=== PATIENT | male | born 1985 | race Caucasian/White ===

== ENCOUNTER 2019-10-28 10:42 | Emergency (ER) | payer SELFPAY ==
[2019-10-28] MEDS ORDERED: Morphine 10 MG/ML Syringe IM ONE (11:03)
[2019-10-28] MEDS ORDERED: Lidocaine 1% 10 ML MDV INJECT ONE (11:05)
--- NOTE | 2019-10-28 11:10 | EDM.PDOC ---
ED HPI GENERAL MEDICAL PROBLEM - General Chief Complaint: Skin Complaint Stated Complaint: ABCESS/CYST ON BUTTOCKS Time Seen by Provider: 10/28/19 10:47 Source of Information: Reports: Patient History Limitations: Reports: No Limitations - History of Present Illness INITIAL COMMENTS - FREE TEXT/NARRATIVE: Presents reporting an abscess on his left buttock. The patient states his lysed it yesterday and it has been draining but it is extremely painful. He is otherwise healthy without chronic medical problems. He is obese. He states that he got a little itching on his arms from taking Vicodin once but has since taken Tylenol 3 without reaction. No fever left buttock Pain Score (Numeric/FACES): 9 - Related Data Allergies Allergy/AdvReac Type Severity Reaction Status Date / Time acetaminophen [From Vicodin] Allergy Itching Verified 10/28/19 10:54 hydrocodone [From Vicodin] Allergy Itching Verified 10/28/19 10:54 Home Meds: Home Meds Acetaminophen with Codeine [Tylenol with Codeine #3 Tablet] 1 each PO Q6HR PRN # 20 tablet 10/28/19 [Rx] Clindamycin HCl 1 cap PO TID #30 capsule 10/28/19 [Rx] Past Medical History HEENT History: Reports: None Cardiovascular History: Reports: None Respiratory History: Reports: None Gastrointestinal History: Reports: None Genitourinary History: Reports: None Musculoskeletal History: Reports: None Neurological History: Reports: None Psychiatric History: Reports: None Endocrine/Metabolic History: Reports: None Hematologic History: Reports: None Immunologic History: Reports: None Oncologic (Cancer) History: Reports: None Dermatologic History: Reports: None - Infectious Disease History Infectious Disease History: Reports: Chicken Pox - Past Surgical History Head Surgeries/Procedures: Reports: None HEENT Surgical History: Reports: None Cardiovascular Surgical History: Reports: None Respiratory Surgical History: Reports: None GI Surgical History: Reports: None Male Surgical History: Reports: None Endocrine Surgical History: Reports: None Neurological Surgical History: Reports: None Musculoskeletal Surgical History: Reports: None Oncologic Surgical History: Reports: None Dermatological Surgical History: Reports: None Social & Family History - Family History Family Medical History: Noncontributory - Tobacco Use Smoking Status *Q: Former Smoker Used Tobacco, but Quit: Yes Month/Year Tobacco Last Used: 1 week - Caffeine Use Caffeine Use: Reports: None - Recreational Drug Use Recreational Drug Use: No ED ROS GENERAL - Review of Systems Review Of Systems: Comprehensive ROS is negative, except as noted in HPI. ED EXAM, SKIN/RASH Exam: See Below Exam Limited By: No Limitations General Appearance: Alert, Moderate Distress (Due to pain) Ears: Normal External Exam Nose: Normal Inspection Throat/Mouth: Normal Inspection Head: Atraumatic, Normocephalic Neck: Normal Inspection Respiratory/Chest: No Respiratory Distress Cardiovascular: Normal Peripheral Pulses Neurological: Alert, Oriented Psychiatric: Normal Affect, Normal Mood Skin: Warm, Dry, Other (Right buttock draining abscess with firm erythematous area 8 x 4 cm lateral) Course - Vital Signs Last Recorded V/S: Last Vital Signs Temp 36.8 C 10/28/19 10:54 Pulse 135 H 10/28/19 10:54 Resp 18 10/28/19 10:54 BP 152/95 H 10/28/19 10:54 Pulse Ox 96 10/28/19 10:54 - Orders/Labs/Meds Labs: Laboratory Tests 10/28/19 Range/Units 11:21 WBC 15.81 H (4.0-11.0) K/uL RBC 4.97 (4.50-5.90) M/uL Hgb 14.3 (13.0-17.0) g/dL Hct 43.4 (38.0-50.0) % MCV 87.3 (80.0-98.0) fL MCH 28.8 (27.0-32.0) pg MCHC 32.9 (31.0-37.0) g/dL RDW Std Deviation 40.6 (28.0-62.0) fl RDW Coeff of Reyes 13 (11.0-15.0) % Plt Count 221 (150-400) K/uL MPV 9.60 (7.40-12.00) fL Neut % (Auto) 76.7 (48.0-80.0) % Lymph % (Auto) 12.8 L (16.0-40.0) % Dixie % (Auto) 8.2 (0.0-15.0) % Eos % (Auto) 2.0 (0.0-7.0) % Baso % (Auto) 0.3 (0.0-1.5) % Neut # (Auto) 12.1 H (1.4-5.7) K/uL Lymph # (Auto) 2.0 (0.6-2.4) K/uL Dixie # (Auto) 1.3 H (0.0-0.8) K/uL Eos # (Auto) 0.3 (0.0-0.7) K/uL Baso # (Auto) 0.0 (0.0-0.1) K/uL Nucleated RBC % 0.0 /100WBC Nucleated RBCs # 0 K/uL Meds: Medications Discontinued Medications Generic Name Dose Route Start Last Admin Trade Name Darren PRN Reason Stop Dose Admin Lidocaine HCl 10 ml 10/28/19 11:05 Xylocaine 1% INJECT 10/28/19 11:06 ONETIME ONE Lidocaine HCl Confirm 10/28/19 12:06 Xylocaine-Mpf 1% Administered 10/28/19 12:07 Dose 10 ml .ROUTE .STK-MED ONE Morphine Sulfate 10 mg 10/28/19 11:03 10/28/19 11:58 Morphine IM 10/28/19 11:04 10 mg ONETIME ONE Administration Departure - Departure Time of Disposition: 12:30 Disposition: Home, Self-Care 01 Condition: Good Clinical Impression: Skin abscess - Discharge Information Instructions: Skin Abscess Referrals: PCP,None [Primary Care Provider] - Forms: ED Department Discharge Additional Instructions: 1. Take your antibiotic 3 times daily starting immediately when you pick it up today. 2. Pain medication (Tylenol #3) every 6 hours as needed for pain. No driving or operating machinery 3. Warm personal shower to area or warm moist packs packs 20 minutes 3 times daily. 4. [facility] for packing change and check up on 10/30/2019 at (will call) 5. Colace (Docusate) 100mg twice daily (stool softener) to avoid constipation. 6. If packing falls out, just leave it out and follow up at clinic apt. The abscess will drain which is expected. May change dressing. Sepsis Event Note - Evaluation Sepsis Screening Result: No Definite Risk - Focused Exam Vital Signs: Vital Signs Temp Pulse Resp BP Pulse Ox 10/28/19 10:54 36.8 C 135 H 18 152/95 H 96 Date Exam was Performed: 10/28/19 Time Exam was Performed: 12:29
== END 2019-10-28 13:15 | disposition home or self-care (01) ==
LOC: MW.ED 10:42
DX: L02.31 Cutaneous abscess of buttock (principal); Z88.5 Allergy status to narcotic agent; Z88.6 Allergy status to analgesic agent
CPT/HCPCS: 10060; 36415; 85025; 96372; 99283; J2001; J2270

== ENCOUNTER 2020-02-24 09:08 | Emergency (ER) | payer SELFPAY ==
--- NOTE | 2020-02-24 09:21 | EDM.PDOC ---
ED HPI GENERAL MEDICAL PROBLEM - General Chief Complaint: Skin Complaint Stated Complaint: RASH RIGHT SIDE OF BODY Time Seen by Provider: 02/24/20 09:09 Source of Information: Reports: Patient History Limitations: Reports: No Limitations - History of Present Illness INITIAL COMMENTS - FREE TEXT/NARRATIVE: 34-year-old male with no past medical history presenting for evaluation of a rash. Patient reports a 6-day history of an erythematous, mildly painful, mildly pruritic rash to the right side of his back and right chest. He is concerned that he has shingles. No known sick contacts. Denies fever, chills, nausea, vomiting. Denies any eye pain, visual disturbance, foreign body sensation, facial lesions, or hearing loss. No history of HIV, hepatitis, or immunosuppression. No other complaints. Past medical history: Reviewed, no additional pertinent history. Surgical history: Reviewed in system, no additional pertinent history. Social history: Reviewed in system, no additional pertinent history. Family history: Reviewed in system, no additional pertinent history. PHYSICAL EXAM Vital signs reviewed. Nursing notes reviewed. Constitutional: Awake, alert, non-distressed. Head: Normocephalic, atraumatic. Eyes: EOMI, conjunctiva normal, no discharge, no scleral icterus. No conjunct ival discharge. Ears, Nose, Throat: External ears and nose normal, moist oral mucosa. Right EAC and TM clear bilaterally, no lesions noted to TM or ear canal. Cardiovascular: 2+ radial pulse, capillary refill less than 2 seconds. Pulmonary: normal work of breathing, no accessory muscle use. Abdomen/GI: Soft, nontender, nondistended, no guarding or rigidity, no masses. Musculoskeletal: No deformities. Integumentary: Appropriate color for ethnicity, warm, dry, no pallor or jaundice. The right side of the thoracic back and the right lateral and right anterior chest feature a vesicular rash on an erythematous base with lesions in various stages of healing, consistent with shingles. Neurologic: Alert, answering questions appropriately, normal speech, no facial droop, moving all extremities well. Psychiatric: Appropriate mood and affect, normal thought process. right upper abd/back Pain Score (Numeric/FACES): 0 - Related Data Allergies Allergy/AdvReac Type Severity Reaction Status Date / Time acetaminophen [From Vicodin] Allergy Itching Verified 02/24/20 09:14 hydrocodone [From Vicodin] Allergy Itching Verified 02/24/20 09:14 Home Meds: Home Meds Acyclovir 800 mg PO 5XDAY 7 Days #35 tablet 02/24/20 [Rx] Past Medical History HEENT History: Reports: None Cardiovascular History: Reports: None Respiratory History: Reports: None Gastrointestinal History: Reports: None Genitourinary History: Reports: None Musculoskeletal History: Reports: None Neurological History: Reports: None Psychiatric History: Reports: None Endocrine/Metabolic History: Reports: None Hematologic History: Reports: None Immunologic History: Reports: None Oncologic (Cancer) History: Reports: None Dermatologic History: Reports: None - Infectious Disease History Infectious Disease History: Reports: Chicken Pox - Past Surgical History Head Surgeries/Procedures: Reports: None HEENT Surgical History: Reports: None Cardiovascular Surgical History: Reports: None Respiratory Surgical History: Reports: None GI Surgical History: Reports: None Male Surgical History: Reports: None Endocrine Surgical History: Reports: None Neurological Surgical History: Reports: None Musculoskeletal Surgical History: Reports: None Oncologic Surgical History: Reports: None Dermatological Surgical History: Reports: None Social & Family History - Family History Family Medical History: Noncontributory - Tobacco Use Smoking Status *Q: Current Every Day Smoker Years of Tobacco use: 18 Packs/Tins Daily: 1 - Caffeine Use Caffeine Use: Reports: Energy Drinks - Recreational Drug Use Recreational Drug Use: No ED ROS GENERAL - Review of Systems Review Of Systems: See Below ED EXAM, SKIN/RASH Exam: See Below Course - Vital Signs Text/Narrative:: Presentation consistent with uncomplicated shingles. No evidence of otic or ophthalmic or facial involvement. No sign of dissemination. Involves only the thoracic dermatomes. Pain is well controlled. Stable to discharge home with a 7-day course of acyclovir. Recommended [id number] Tylenol, ibuprofen, lidocaine patches, and diphenhydramine as needed. Plan: Patient is stable to discharge home with outpatient primary care clinic follow-up. Strict emergency department return precautions were provided, patient indicated understanding. All questions were answered prior to departure. Discharged in good condition. Last Recorded V/S: Last Vital Signs Temp 36.2 C 02/24/20 09:15 Pulse 90 02/24/20 09:15 Resp 18 02/24/20 09:15 BP 145/111 H 02/24/20 09:15 Pulse Ox 97 02/24/20 09:15 Departure - Departure Time of Disposition: 09:33 Disposition: Home, Self-Care 01 Condition: Good Clinical Impression: Shingles Qualifiers: Herpes zoster complications: without complications Qualified Code(s): B02.9 - Zoster without complications - Discharge Information *PRESCRIPTION DRUG MONITORING PROGRAM REVIEWED*: Not Applicable *COPY OF PRESCRIPTION DRUG MONITORING REPORT IN PATIENT DAVIDA: Not Applicable Prescriptions: Acyclovir 800 mg PO 5XDAY 7 Days #35 tablet Instructions: Shingles Referrals: [facility] [Provider Group] - 1 Week (As needed) Forms: ED Department Discharge Additional Instructions: You were seen in the emergency department for a rash. It appears that you have shingles. This is usually self-limited and will resolve on its own with the help of some antiviral medication. I will prescribe an antiviral medication to the pharmacy, take this as directed. I recommend [id number] extra strength acetaminophen (1000 mg every 6 hours) and ibuprofen (400 mg every 6 hours) to help treat your pain. You can also take [id number] lidocaine patches as needed. If you experience significant itching, you can take diphenhydramine tablets 25 mg every 6 hours. Please return the emergency department immediately if your symptoms worsen or if you feel worse. Thank you for choosing the [facility] emergency department in [place] for your medical needs today. It was a pleasure caring for you. The following information is given to patients seen in the emergency department who are being discharged. This information is to outline your options for follo w-up care. We provide all patients seen in our emergency department with a follow-up referral. The need for follow-up, as well as the timing and circumstances, are variable depending upon the specifics of your emergency department visit. If you don't have a primary care physician on staff, we will provide you with a referral. We always advise you to contact your personal physician following an e mergency department visit to inform them of the circumstance of the visit and for follow-up with them and/or the need for any referrals to a consulting specialist. The emergency department will also refer you to a specialist when appropriate. This referral assures that you have the opportunity for follow-up care with a specialist. All of these measure are taken in an effort to provide you with op timal care, which includes your follow-up. Under all circumstances we always encourage you to contact your private physician who remains a resource for coordinating your care. When calling for follow-up care, please make the office aware that this follow-up is from your recent emergency room visit. If for any reason you are refused follow-up, please contact the [facility] Emergency Department at and asked to speak to the emergency department charge nurse. If you do not have a primary care physician that is caring for you, you can contact these clinics below to set up an appointment to establish care: [facility] [address] [place] [address] [place] [address] Sepsis Event Note (ED) - Evaluation Sepsis Screening Result: No Definite Risk - Focused Exam Vital Signs: Vital Signs Temp Pulse Resp BP Pulse Ox 02/24/20 09:15 36.2 C 90 18 145/111 H 97
== END 2020-02-24 09:42 | disposition home or self-care (01) ==
LOC: MW.ED 09:08
DX: B02.9 Zoster without complications (principal); F17.210 Nicotine dependence, cigarettes, uncomplicated; Z88.6 Allergy status to analgesic agent; Z88.5 Allergy status to narcotic agent
CPT/HCPCS: 99282

== ENCOUNTER 2020-09-29 18:13 | Emergency (ER) | payer SELFPAY ==
--- NOTE | 2020-09-29 19:13 | EDM.PDOC ---
ED HPI GENERAL MEDICAL PROBLEM - General Chief Complaint: Respiratory Problem Stated Complaint: POSSIBLE COVID, COUGH Time Seen by Provider: 09/29/20 18:14 Source of Information: Reports: Patient History Limitations: Reports: No Limitations - History of Present Illness INITIAL COMMENTS - FREE TEXT/NARRATIVE: HISTORY AND PHYSICAL: History of present illness: Patient is a 34-year-old male who presents to the emergency room with complaints of sore throat, mild headache, body aches, cough and generally feeling unwell. He believes earlier this week he came in contact with someone who had COVID-19 and is concerned he has this illness. Patient denies any fever, chills, change in vision, syncope or near syncope. Denies any chest pain, back pain, shortness of breath or hemoptysis. Denies any abdominal pain, nausea, vomiting, diarrhea, constipation or dysuria. Has not noted any blood in urine or stool. Patient has been eating and drinking appropriately. Review of systems: As per history of present illness and below otherwise all systems reviewed and negative. Past medical history: As per history of present illness and as reviewed below otherwise noncontributory. Surgical history: As per history of present illness and as reviewed below otherwise noncontributory. Social history: See social history for further information Family history: As per history of present illness and as reviewed below otherwise noncontributory. Physical exam: General: Well developed and well nourished. Alert and orientated x 3. Nontoxic in appearance and in no acute distress. Vital signs are stable and have been reviewed by me. Nursing notes were reviewed. HEENT: Atraumatic, normocephalic, pupils equal and reactive bilaterally, negative for conjunctival pallor or scleral icterus, mucous membranes moist, TMs normal bilaterally, throat clear (no erythema/exudate or fullness), neck supple, no lymphadenopathy, nontender, trachea midline. No drooling or trismus noted. No meningeal signs. No hot potato voice noted. Lungs: Clear to auscultation bilaterally. No wheezes, rales, or rhonchi. Chest nontender. Normal work of breathing, no accessory muscles used. Heart: S1S2, regular rate and rhythm without overt murmur, gallops, or rubs. No JVD. No peripheral edema Abdomen: Soft, nondistended, nontender. Normoactive bowel sounds. Negative for masses or costovertebral tenderness. Skin: Intact, warm, dry. No lesions or rashes noted. Hematologic: No petechiae or purpra. Mucosa appropriate color and normal nail bed color and refill. Extremities: Atraumatic, moves all extremities per self without difficulty or deficits, negative for cords or calf pain. Neurovascular unremarkable. Neuro: Awake, alert, oriented. Cranial nerves II through XII unremarkable. Cerebellum unremarkable. Motor and sensory unremarkable throughout. Exam nonfocal. Psychiatric: Mood and affect are appropriate. Normal thought process. Answering questions appropriately. Notes: *This patient was seen and evaluated during the 2019 SARS-CoV-2 novel coronavirus pandemic period. Community viral transmission is ongoing at time of this encounter and the emergency department is operating under pandemic response procedures. CXR shows no acute findings. - COVID and influenza. I have talked with the patient about today's findings, in addition to providing specific details for plan of care. Reassessment at the time of disposition demonstrates that the patient is in no acute distress. The patient is stable for discharge, counseling was provided and we discussed in great detail signs and symptoms that would prompt them to return to the Emergency Department. Medication, follow up and supportive care measures were reviewed and discussed. Voices understanding and is agreeable to plan of care. Denies any further questions or concerns at this time. Diagnostics: COVID/influenza, chest x-ray Therapeutics: None Prescription: Zpak Impression: Bronchitis Plan: 1. You were evaluated today on an emergent basis. Your COVID/Influenza and chest x-ray are within normal limits. I will treat you with antibiotics to cover bronchitis. If your symptoms should worsen, new symptoms develop or any of the signs and symptoms we discussed should arise please return to the emergency room or call 911 (if needed). 2. You can alternate Tylenol and ibuprofen as needed for pain and fever management. 3. We encourage you to follow up with your primary care provider and/or recommended specialist in the next few days for re-evaluation and further care/management. Definitive disposition and diagnosis as appropriate pending reevaluation and review of above. Generalized Pain Score (Numeric/FACES): 6 - Related Data Allergies Allergy/AdvReac Type Severity Reaction Status Date / Time acetaminophen [From Vicodin] Allergy Itching Verified 09/29/20 18:35 hydrocodone [From Vicodin] Allergy Itching Verified 09/29/20 18:35 Home Meds: Home Meds . [No Known Home Meds] 09/29/20 [History] Past Medical History - Past Health History Medical/Surgical History: Denies Medical/Surgical History HEENT History: Reports: None Cardiovascular History: Reports: None Respiratory History: Reports: None Gastrointestinal History: Reports: None Genitourinary History: Reports: None Musculoskeletal History: Reports: None Neurological History: Reports: None Psychiatric History: Reports: None Endocrine/Metabolic History: Reports: None Hematologic History: Reports: None Immunologic History: Reports: None Oncologic (Cancer) History: Reports: None Dermatologic History: Reports: None - Infectious Disease History Infectious Disease History: Reports: Chicken Pox, Shingles - Past Surgical History Head Surgeries/Procedures: Reports: None HEENT Surgical History: Reports: None Cardiovascular Surgical History: Reports: None Respiratory Surgical History: Reports: None GI Surgical History: Reports: None Male Surgical History: Reports: None Endocrine Surgical History: Reports: None Neurological Surgical History: Reports: None Musculoskeletal Surgical History: Reports: None Oncologic Surgical History: Reports: None Dermatological Surgical History: Reports: None Social & Family History - Family History Family Medical History: No Pertinent Family History - Tobacco Use Tobacco Use Status *Q: Current Every Day Tobacco User Years of Tobacco use: 18 Packs/Tins Daily: 1 - Caffeine Use Caffeine Use: Reports: Coffee - Recreational Drug Use Recreational Drug Use: No ED ROS GENERAL - Review of Systems Review Of Systems: Comprehensive ROS is negative, except as noted in HPI. ED EXAM, GENERAL - Physical Exam Exam: See Below (See dictation) Course - Vital Signs Last Recorded V/S: Last Vital Signs Temp 97.8 F 09/29/20 18:35 Pulse 118 H 09/29/20 18:35 Resp 18 09/29/20 18:35 BP 156/113 H 09/29/20 18:35 Pulse Ox 96 09/29/20 18:35 - Orders/Labs/Meds Labs: Laboratory Tests 09/29/20 Range/Units 19:21 Influenza Type A RNA NEGATIVE (NEGATIVE) Influenza Type B RNA NEGATIVE (NEGATIVE) SARS-CoV-2 RNA (DERECK) NEGATIVE (NEGATIVE) Departure - Departure Time of Disposition: 20:23 Disposition: Home, Self-Care 01 Clinical Impression: Bronchitis - Discharge Information Instructions: Acute Bronchitis, Adult Referrals: PCP,None [Primary Care Provider] - Forms: ED Department Discharge Additional Instructions: The following information is given to patients seen in the emergency department who are being discharged to home. This information is to outline your options for follow-up care. We provide all patients seen in our emergency department with a follow-up referral. The need for follow-up, as well as the timing and circumstances, are variable depending upon the specifics of your emergency department visit. If you don't have a primary care physician on staff, we will provide you with a referral. We always advise you to contact your personal physician following an emergency department visit to inform them of the circumstance of the visit and for follow-up with them and/or the need for any referrals to a consulting spe cialist. The emergency department will also refer you to a specialist when appropriate. This referral assures that you have the opportunity for follow-up care with a specialist. All of these measure are taken in an effort to provide you with optimal care, which includes your follow-up. Under all circumstances we always encourage you to contact your private physician who remains a resource for coordinating your care. When calling for follow-up care, please make the office aware that this follow-up is from your recent emergency room visit. If for any reason you are refused follow-up, please contact the [facility] Emergency Department at and asked to speak to the emergency department charge nurse. [facility] [address] [place], [place] [id number] [place] [id number] Thank you for choosing the [facility] emergency department in [place] for your medical needs today. It was a pleasure caring for you. Today you were seen in the emergency department for respiratory symptoms. 1. You were evaluated today on an emergent basis. Your COVID/Influenza and chest x-ray are within normal limits. I will treat you with antibiotics to cover bronchitis. If your symptoms should worsen, new symptoms develop or any of the signs and symptoms we discussed should arise please return to the emergency room or call [phone] (if needed). 2. You can alternate Tylenol and ibuprofen as needed for pain and fever management. 3. We encourage you to follow up with your primary care provider and/or recommended specialist in the next few days for re-evaluation and further care/management. Sepsis Event Note (ED) - Evaluation Sepsis Screening Result: Possible Sepsis Risk - Focused Exam Vital Signs: Vital Signs Temp Pulse Resp BP Pulse Ox 09/29/20 18:35 97.8 F 118 H 18 156/113 H 96
--- NOTE | 2020-09-29 19:52 | CR ---
INDICATION: Pain. Shortness of breath. Comparison: None. Findings: PA and lateral views of the chest were obtained. There is the appearance of a prominent right pericardial fat pad a the cardiac silhouette and pulmonary vasculature are within normal limits. The lungs are clear bilaterally. IMPRESSION: No evidence of acute pulmonary disease. Dictated by John Schwab MD @ Sep 29 2020 7:50PM Signed by Dr. John Schwab @ Sep 29 2020 7:52PM
[2020-09-29 20:06] LABS: CORONAVIRUS COVID-19 NAA NEGATIVE (NEGATIVE); INFLUENZA A NAA NEGATIVE (NEGATIVE); INFLUENZA B NAA NEGATIVE (NEGATIVE)
== END 2020-09-29 20:38 | disposition home or self-care (01) ==
LOC: MW.ED 18:13
DX: J40 Bronchitis, not specified as acute or chronic (principal); Z88.5 Allergy status to narcotic agent; Z72.0 Tobacco use; Z20.822 Contact with and (suspected) exposure to COVID-19
CPT/HCPCS: 0240U; 71046; 99283; 99282